=== PATIENT | male | born 1945 | race Caucasian/White ===

== ENCOUNTER 2017-11-18 09:39 | Inpatient (IN) | payer OTHER ==
[2017-11-18] VITALS (7 sets, daily range): BP systolic 118–180; BP diastolic 73–88
[~2017-11-18] VITALS: Ht 180.3 cm; Wt 85.4 kg
[2017-11-18] MEDS ORDERED: SODIUM CHLORIDE FLUSH 10ML SYR IVF ONE (10:00)
[2017-11-18] MEDS ORDERED: ASPI-496 PO (10:06)
[2017-11-18] MEDS ORDERED: LISI-170 PO (10:06)
[2017-11-18] MEDS ORDERED: CITA10TA4 PO (10:06)
[2017-11-18] MEDS ORDERED: CARV6.252 PO (10:06)
[2017-11-18 10:23] LABS: BASOPHILS # (AUTO) 0.06 x10^3/uL (0-0.1); BASOPHILS % (AUTO) 1 % (0-1); EOSINOPHILS # (AUTO) 0.33 x10^3/uL (0-0.4); EOSINOPHILS % (AUTO) 4 % (1-7); LYMPHOCYTES # (AUTO) 1.88 x10^3/uL (1-3.4); LYMPHOCYTES % (AUTO) 21 % (22-44); MD NO; MEAN CORPUSCULAR HGB CONC 34.7 g/dL (33.2-36.2); MEAN CORPUSCULAR VOLUME 92.1 fL (81-97); MEAN PLATELET VOLUME 8.7 fL (7.4-10.4); MONOCYTES # (AUTO) 0.97 x10^3/uL (0.2-0.8); MONOCYTES % (AUTO) 11 % (2-9); NEUTROPHILS # (AUTO) 5.56 x10^3/uL (1.8-6.8); NEUTROPHILS % (AUTO) 63 % (42-75); PLATELET COUNT 155 x10^3/uL (130-400); RED BLOOD COUNT 4.25 x10^6/uL (4.38-5.82); RED CELL DISTRIBUTION WIDTH 14.2 % (9.4-14.8)
[2017-11-18 10:32] LABS: ALBUMIN 3.3 g/dL (3.4-5.0); ANION GAP 6 mmol/L (5-15); CALCIUM 8.3 mg/dL (8.5-10.1); CHLORIDE 110 mmol/L (98-107); CREATININE 1.02 mg/dL (0.7-1.3)
[2017-11-18 10:36] LABS: TROPONIN I < 0.015 ng/mL (0.000-0.045)
[2017-11-18] MEDS ORDERED: ONDANSETRON ODT 4 MG PO PRN (11:30)
[2017-11-18] MEDS ORDERED: LABETALOL 5MG/ML, 20ML IVPush PRN (11:30)
[2017-11-18] MEDS ORDERED: POLYETHYLENE GLYCOL 17 GM PACKET PO PRN (11:30)
[2017-11-18] MEDS ORDERED: ONDANSETRON 2MG/ML, 2ML IVPush PRN (11:30)
[2017-11-18 12:01] LABS: FREE T4 (FREE THYROXINE) 1.04 ng/dL (0.76-1.46); THYROID STIMULATING HORMONE 3.82 mIU/L (0.358-3.740)
[2017-11-18] MEDS: LACTATED RINGERS 1,000 ML IV SCH ×2 (15:24→23:12)
[2017-11-18] MEDS: ENOXAPARIN 40 MG/0.4 ML SQ SCH (16:12)
[2017-11-18] MEDS: CARVEDILOL 6.25 MG TABLET PO SCH (16:12)
[2017-11-18 17:30] LABS: TROPONIN I < 0.015 ng/mL (0.000-0.045)
[2017-11-19 00:20] VITALS: BP 134/80
[2017-11-19 05:25] LABS: BASOPHILS # (AUTO) 0.05 x10^3/uL (0-0.1); BASOPHILS % (AUTO) 1 % (0-1); EOSINOPHILS # (AUTO) 0.41 x10^3/uL (0-0.4); EOSINOPHILS % (AUTO) 5 % (1-7); LYMPHOCYTES # (AUTO) 2.12 x10^3/uL (1-3.4); LYMPHOCYTES % (AUTO) 26 % (22-44); MD NO; MEAN CORPUSCULAR HEMOGLOBIN 31.3 pg (27.5-34.5); MEAN CORPUSCULAR HGB CONC 33.9 g/dL (33.2-36.2); MEAN CORPUSCULAR VOLUME 92.4 fL (81-97); MEAN PLATELET VOLUME 8.6 fL (7.4-10.4); MONOCYTES # (AUTO) 0.89 x10^3/uL (0.2-0.8); MONOCYTES % (AUTO) 11 % (2-9); NEUTROPHILS # (AUTO) 4.82 x10^3/uL (1.8-6.8); NEUTROPHILS % (AUTO) 58 % (42-75); PLATELET COUNT 150 x10^3/uL (130-400); RED BLOOD COUNT 4.35 x10^6/uL (4.38-5.82); RED CELL DISTRIBUTION WIDTH 14.6 % (9.4-14.8)
[2017-11-19 05:31] LABS: ALANINE AMINOTRANSFERASE 16 U/L (12-78); ALBUMIN 3.2 g/dL (3.4-5.0); ANION GAP 3 mmol/L (5-15); CALCIUM 8.6 mg/dL (8.5-10.1); CHLORIDE 113 mmol/L (98-107); CREATININE 0.91 mg/dL (0.7-1.3)
[2017-11-19 05:34] LABS: ALKALINE PHOSPHATASE 58 U/L (45-117); BILIRUBIN,TOTAL 0.5 mg/dL (0.2-1.0); CHOL/HDL RATIO 3.5; CHOLESTEROL, TOTAL 139 mg/dL (140-239); HDL CHOL % 29 % (26-37); HDL CHOLESTEROL (DIRECT) 40 mg/dL (40-60); LDL CHOLESTEROL,CALCULATED 79 mg/dL (54-169); TRIGLYCERIDES 101 mg/dL (50-200); VLDL CHOLESTEROL 20 mg/dL (0-25)
[2017-11-19 05:36] LABS: TROPONIN I < 0.015 ng/mL (0.000-0.045)
[2017-11-19 05:47] LABS: HEMOGLOBIN A1C 5.2 % (4.2-6.3)
[2017-11-19 06:36] VITALS: BP 143/92
[2017-11-19] MEDS: CARVEDILOL 6.25 MG TABLET PO SCH ×2 (06:39→17:34)
[2017-11-19] MEDS: LACTATED RINGERS 1,000 ML IV SCH ×2 (07:28→17:34)
[2017-11-19 08:02] VITALS: BP 148/94
[2017-11-19] MEDS: SENNA/DOCUSATE TABLET PO SCH (08:04)
[2017-11-19] MEDS: ASPIRIN 81 MG TABLET EC PO SCH (08:04)
[2017-11-19] MEDS ORDERED: REGADENOSON 0.4 MG/5 ML SYRINGE ONE (08:16)
[2017-11-19 13:38] VITALS: BP 148/76
[2017-11-19] MEDS: ENOXAPARIN 40 MG/0.4 ML SQ SCH (16:18)
[2017-11-19 19:45] VITALS: BP 133/81
[2017-11-20 01:01] VITALS: BP 145/88
[2017-11-20] MEDS: LACTATED RINGERS 1,000 ML IV SCH (01:01)
[2017-11-20 04:51] LABS: BASOPHILS # (AUTO) 0.05 x10^3/uL (0-0.1); BASOPHILS % (AUTO) 1 % (0-1); EOSINOPHILS # (AUTO) 0.38 x10^3/uL (0-0.4); EOSINOPHILS % (AUTO) 5 % (1-7); LYMPHOCYTES # (AUTO) 1.93 x10^3/uL (1-3.4); LYMPHOCYTES % (AUTO) 26 % (22-44); MD NO; MEAN CORPUSCULAR HEMOGLOBIN 31.3 pg (27.5-34.5); MEAN CORPUSCULAR HGB CONC 33.7 g/dL (33.2-36.2); MEAN CORPUSCULAR VOLUME 92.9 fL (81-97); MEAN PLATELET VOLUME 8.8 fL (7.4-10.4); MONOCYTES # (AUTO) 0.77 x10^3/uL (0.2-0.8); MONOCYTES % (AUTO) 11 % (2-9); NEUTROPHILS # (AUTO) 4.21 x10^3/uL (1.8-6.8); NEUTROPHILS % (AUTO) 58 % (42-75); PLATELET COUNT 146 x10^3/uL (130-400); RED BLOOD COUNT 4.34 x10^6/uL (4.38-5.82); RED CELL DISTRIBUTION WIDTH 14.4 % (9.4-14.8)
[2017-11-20 05:03] LABS: ALBUMIN 3.2 g/dL (3.4-5.0); ANION GAP 5 mmol/L (5-15); CALCIUM 8.3 mg/dL (8.5-10.1); CHLORIDE 113 mmol/L (98-107); CREATININE 0.82 mg/dL (0.7-1.3)
[2017-11-20] MEDS: CARVEDILOL 6.25 MG TABLET PO SCH (06:15)
[2017-11-20 07:10] VITALS: BP 176/118
[2017-11-20] MEDS: ASPIRIN 81 MG TABLET EC PO SCH (07:53)
[2017-11-20] MEDS: SENNA/DOCUSATE TABLET PO SCH (07:54)
[2017-11-20 08:15] VITALS: BP 153/93
[2017-11-20 10:55] VITALS: BP 103/70
[2017-11-20] MEDS ORDERED: LISI5TAB7 PO (11:53)
[2017-11-20 13:10] VITALS: BP 139/91
[2017-11-20] MEDS: ENOXAPARIN 40 MG/0.4 ML SQ SCH (14:50)
== END 2017-11-20 15:44 | disposition home or self-care (01) | DRG 74 ==
LOC: ED 11:00 → EDIP 11:17 → 5SO 12:21
PROVIDERS: ADMIT Hospitalist; ATTEND Hospitalist
DX: G90.8 Other disorders of autonomic nervous system (principal); E44.1 Mild protein-calorie malnutrition; I50.30 Unspecified diastolic (congestive) heart failure; D64.9 Anemia, unspecified; Z87.891 Personal history of nicotine dependence; I73.9 Peripheral vascular disease, unspecified; E86.0 Dehydration; I11.0 Hypertensive heart disease with heart failure; E78.5 Hyperlipidemia, unspecified; K44.9 Diaphragmatic hernia without obstruction or gangrene; Z79.899 Other long term (current) drug therapy; Z80.6 Family history of leukemia; Z83.3 Family history of diabetes mellitus; F10.21 Alcohol dependence, in remission; Z68.26 Body mass index [BMI] 26.0-26.9, adult
CPT/HCPCS: 0399T; 36415; 71045; 78452; 80048; 80053; 80061; 82040; 83036; 83735; 84100; 84439; 84443; 84484; 85025; 93005; 93017; 93306; 93880; 99285; J1650; J2785; A9502; C9898; J7120